=== PATIENT | male | born 1950 | race Caucasian/White ===

== ENCOUNTER 2017-02-09 18:22 | Emergency (ER) | payer OTHER ==
--- NOTE | ~2017-02-09 | OR ---
Unit #: [id number] #: [id number] Patient: TRAV BEE [id number] [address] [place], [place] [address] [id number] MR#: [id number] NAME: TRAV BEE ROOM: Date of Procedure: 02/10/2017 Admission Date: 02/09/2017 Surgeon: Josue Finnegan M.D. : 1950 Attending Physician: Maverick Grossman D.O. Primary Care Physician: Viviana Gonzales M.D. OPERATIVE REPORT PROCEDURE PERFORMED Excision of penile ring. PREOPERATIVE DIAGNOSIS External constriction of penis by object. POSTOPERATIVE DIAGNOSIS External constriction of penis by object. ANESTHESIA Morphine analgesia. INDICATIONS FOR PROCEDURE A 66-year-old gentleman, who presents with 2-day constriction of penis by penile ring, onset two days ago. He has had proximal swelling and edema and pain. He presents to the emergency room for excision of penile ring. Attempt was made to remove the ring with compression of the distal glands and penis. This was unsuccessful. The decision was made to cut the ring off by dermal saw. DESCRIPTION OF PROCEDURE The patient was preoperatively given analgesia prior to any procedure. A dermal saw used to excise the dorsal aspect of the ring and total through two incisions were made. The ring was spread and removed from the penis. Paraphimosis was reduced. The patient tolerated the procedure well. COMPLICATIONS None. ESTIMATED BLOOD LOSS Zero. SPECIMENS None. Dictated by... Katharine Coon/julián TD: 02/11/2017 13:13 Unit #: [id number] #: [id number] Patient: TRAV BEE JOB #: [id number] OPERATIVE REPORT Page 1 of 1 X JOSUE FINNEGAN MD X PROCEDURE OPERATIVE NOTE
[~2017-02-09 18:22] MED LIST: CHLORTHALIDONE25 MG PO; JANUVIA50 MG PO; LANTUS100 U/ML SUBQ; LOSARTAN POTASS50 MG PO; METOPROLOL TART25 MG PO; NEURONTIN600 MG PO
== END 2017-02-09 20:47 | disposition home or self-care (01) ==
LOC: CED 18:22
DX: T19.4XXA Foreign body in penis, initial encounter (principal); Z90.49 Acquired absence of other specified parts of digestive tract; X58.XXXA Exposure to other specified factors, initial encounter
CPT/HCPCS: 96374; 96375; 99283; J2270; J2405